=== PATIENT | male | born 1950 | race Two or more races ===

== ENCOUNTER 2018-01-14 22:50 | Inpatient (IN) | payer MEDICAID, OTHER ==
[2018-01-15] MEDS ORDERED: ONDANSETRON HCL/PF 4 MG/2 ML VIAL IVP PRN (01:00)
[2018-01-15] MEDS ORDERED: Z GUARD REMEDY 2 OZ OINT TP PRN (01:00)
[2018-01-15] MEDS ORDERED: MAGNESIUM HYDROXIDE 30 ML UDC PO PRN (01:00)
[2018-01-15] MEDS ORDERED: NITROGLYCERIN 0.4 MG/TAB BOTTLE SL PRN (01:00)
[2018-01-15] MEDS ORDERED: HYDROCODONE/APAP 5/325MG 1 EACH TABLET PO PRN (01:00)
[2018-01-15] MEDS ORDERED: MAG HYDROX/AL HYDROX/SIMETH 30 ML UDC PO PRN (01:00)
[2018-01-15] MEDS ORDERED: MORPHINE SULFATE INJ 2 MG/ML DISP.SYRIN IV PRN (01:00)
[2018-01-15] MEDS ORDERED: ACETAMINOPHEN 325 MG TABLET PO PRN (01:00)
[2018-01-15] MEDS ORDERED: ATOR20TA PO (08:09)
[2018-01-15] MEDS ORDERED: OMEP20TA5 PO (08:09)
[2018-01-15] MEDS ORDERED: ASPI-1152 PO (08:09)
[2018-01-15] MEDS ORDERED: HYDR25TA4 PO (08:09)
[2018-01-15] MEDS ORDERED: CHOL50004 PO (08:12)
[2018-01-15] MEDS ORDERED: ATORVASTATIN 40 MG TABLET PO SCH (09:00)
[2018-01-15] MEDS ORDERED: LOSARTAN POTASSIUM 50 MG TABLET PO SCH (09:00)
[2018-01-15] MEDS ORDERED: ASPIRIN 81 MG TAB.CHEW PO SCH (09:00)
[2018-01-15] MEDS ORDERED: IV NS 0.9% 250 ML IV ONE (09:43)
[2018-01-15] MEDS ORDERED: IOHEXOL-300 100 ML VIAL IV ONE (09:43)
[2018-01-15] MEDS ORDERED: CT SWABBABLE VALVE TRANS SET 1 EA INFUS.SET MC ONE (09:44)
[2018-01-15] MEDS ORDERED: IOHEXOL-350 100 ML VIAL IV ONE (09:44)
[2018-01-15] MEDS ORDERED: IV NS 0.9% 1,000 ML BAG IV PRN (18:00)
[2018-01-15] MEDS ORDERED: IV NS 0.9% 1,000 ML IV PRN (18:30)
[2018-01-16] MEDS ORDERED: REGADENOSON 0.4 MG/5 ML DISP.SYRIN IVP ONE (08:00)
== END 2018-01-16 11:18 | disposition home or self-care (01) | DRG 203 ==
DX: R07.89 Other chest pain (principal); I10 Essential (primary) hypertension; E86.9 Volume depletion, unspecified; R73.9 Hyperglycemia, unspecified; E78.5 Hyperlipidemia, unspecified; E55.9 Vitamin D deficiency, unspecified; R00.1 Bradycardia, unspecified; G89.29 Other chronic pain; Z98.890 Other specified postprocedural states; Z72.0 Tobacco use

== ENCOUNTER 2018-11-22 22:47 | Emergency (ER) | payer OTHER ==
[~2018-11-22] VITALS: Ht 180.3 cm; Wt 81.6 kg
[~2018-11-22 22:47] MED LIST: ASPI-1152 PO; ATOR20TA PO; CHOL50004 PO; HYDR25TA4 PO; OMEP20TA5 PO
[2018-11-22 23:13] LABS: BASOPHILS % (AUTO) 0.6 % (0.0-2.0); EOSINOPHILS % (AUTO) 3.4 % (0.0-6.0); HEMATOCRIT 50 % (39-51); HEMOGLOBIN 16.5 g/dL (13.5-17.5); LYMPHOCYTES # (AUTO) 2.3 /CMM (0.8-4.8); LYMPHOCYTES % (AUTO) 28.2 % (20.0-44.0); MEAN CORPUSCULAR HGB CONC 33 g/dl (31.0-36.0); MEAN CORPUSCULAR VOLUME 93 fL (80-96); MONOCYTES % (AUTO) 12.1 % (2.0-12.0); NEUTROPHILS # (AUTO) 4.6 /CMM (1.8-8.9); NEUTROPHILS % (AUTO) 55.7 % (43.0-81.0); PLATELET COUNT (AUTO) 247 /CMM (150-450); RED BLOOD CELL COUNT(AUTO) 5.37 MIL/uL (4.5-6.0); WHITE BLOOD COUNT (AUTO) 8.2 K/uL (4.3-11.0)
--- NOTE | 2018-11-22 23:15 | NUR ---
PT BIB SELF C/O L SIDED CP X2 HRS [employer] WITH RADIATION TO L SHOULDER AND L ARM. 4/10 SEVERITY. SKIN DIAPHORETIC, COOL. RESP EVEN UNLABORED. PLACED ON TELE MONITOR IN ER BED 07.
[2018-11-22 23:21] LABS: CARBON DIOXIDE 28 mmol/L (21-32); CHLORIDE 102 mmol/L (98-107); CREATININE 1.3 mg/dL (0.6-1.3); GLUCOSE 118 mg/dL (74-106); POTASSIUM 3.6 mmol/L (3.5-5.1); SODIUM SERUM 138 mmol/L (136-145); UREA NITROGEN, BLOOD 18 mg/dL (7-18)
[2018-11-22] MEDS ORDERED: ASPIRIN 81 MG TAB.CHEW PO ONE (23:30)
[2018-11-22] MEDS ORDERED: ASPIRIN 81 MG TAB.CHEW ONE (23:31)
--- NOTE | 2018-11-22 23:47 | NUR ---
306-2 T Addendum: 11/22/18 at 2358 by [facility] [id number]
--- NOTE | 2018-11-23 | NUR ---
REPORT GIVEN TO RICCARDO YIN FOR ADMISSION
--- NOTE | 2018-11-23 01:15 | NUR ---
RESTING QUIETLY, NAD NOTED. ON MONITOR, VSS.
--- NOTE | 2018-11-23 02:05 | NUR ---
PT REPORTS 2X EPISODES OF CP LASTING 3 SECONDS EACH WHICH RESOLVED SPONTANEOUSLY. DENIES PAIN CURRENTLY.
--- NOTE | 2018-11-23 02:16 | NUR ---
CALL FROM [facility]. PT ACCEPTED BY DR YEE. BED 532. # FOR REPORT [phone].
--- NOTE | 2018-11-23 02:20 | NUR ---
[facility] CALLED FOR ALS TRANSPORT. ETA 1 HR TRIP#[id number]
--- NOTE | 2018-11-23 02:22 | NUR ---
REPORT GIVEN TO REESE YIN FOR TRANSFER TO [facility]
[2018-11-23 03:20] VITALS: BP 118/71
--- NOTE | 2018-11-23 03:30 | NUR ---
REPORT GIVEN TO [facility] TEAM FOREMAN FOR ALS TRANSFER TO [facility]. ALL BELONGINGS AND PAPERWORK SENT WITH PT. PT TRANSFERRED TO [facility] IN STABLE CONDITION.
== END 2018-11-23 03:53 | disposition short-term general hospital (02) ==
LOC: ER 22:47
DX: R07.89 Other chest pain (principal); I10 Essential (primary) hypertension; E78.5 Hyperlipidemia, unspecified; G89.29 Other chronic pain; M54.9 Dorsalgia, unspecified; F17.200 Nicotine dependence, unspecified, uncomplicated; Z79.82 Long term (current) use of aspirin; Z60.2 Problems related to living alone; Z98.890 Other specified postprocedural states
CPT/HCPCS: 36415; 71045-TC; 80048-TC; 84484-TC; 85025-TC

== ENCOUNTER 2019-08-01 12:50 | Emergency (ER) | payer OTHER ==
[~2019-08-01] VITALS: Ht 170.2 cm; Wt 77.1 kg
--- NOTE | 2019-08-01 13:06 | NUR ---
adela dinh at bedside for eval.
--- NOTE | 2019-08-01 13:20 | NUR ---
laboratory chemist at bedside for blood draw.
[2019-08-01 13:29] LABS: BASOPHILS % (AUTO) 0.5 % (0.0-2.0); EOSINOPHILS % (AUTO) 3.3 % (0.0-6.0); HEMATOCRIT 43 % (39-51); HEMOGLOBIN 14.4 g/dL (13.5-17.5); LYMPHOCYTES # (AUTO) 2.3 /CMM (0.8-4.8); LYMPHOCYTES % (AUTO) 39.2 % (20.0-44.0); MEAN CORPUSCULAR HGB CONC 33 g/dl (31.0-36.0); MEAN CORPUSCULAR VOLUME 92 fL (80-96); MONOCYTES # (AUTO) 0.7 /CMM (0.1-1.30); MONOCYTES % (AUTO) 11.8 % (2.0-12.0); NEUTROPHILS # (AUTO) 2.6 /CMM (1.8-8.9); NEUTROPHILS % (AUTO) 45.2 % (43.0-81.0); PLATELET COUNT (AUTO) 177 /CMM (150-450); RED BLOOD CELL COUNT(AUTO) 4.69 MIL/uL (4.5-6.0); WHITE BLOOD COUNT (AUTO) 5.8 K/uL (4.3-11.0)
--- NOTE | 2019-08-01 13:40 | NUR ---
radiology at bedside for chest and hip xray.
[2019-08-01 13:52] LABS: CALCIUM, SERUM 9.2 mg/dL (8.5-10.1); CREATININE 1.1 mg/dL (0.6-1.3); POTASSIUM 3.8 mmol/L (3.5-5.1)
[2019-08-01] MEDS ORDERED: HYDROCODONE/APAP 5/325MG 1 EACH TABLET PO ONE ×2 (15:30→17:30)
[2019-08-01] MEDS ORDERED: ACETAMINOPHEN ES 500 MG TABLET ONE (15:37)
--- NOTE | 2019-08-01 15:40 | NUR ---
tylenol 1G given per adela SAUCEDA verbal order. pt to radiology for hip ct scan via [facility].
[2019-08-01] MEDS ORDERED: ACETAMINOPHEN ES 500 MG TABLET PO ONE (17:30)
[2019-08-01] MEDS ORDERED: HYDROCODONE/APAP 5/325MG 1 EACH TABLET ONE (17:33)
--- NOTE | 2019-08-01 18:21 | NUR ---
pt road tested. able to ambulate. steady gait. adela dinh at bedside.
--- NOTE | 2019-08-01 18:47 | NUR ---
Patient discharged to home in stable condition. Written and verbal after care instructions given. Patient verbalizes understanding of instruction.
[2019-08-01 18:48] VITALS: BP 118/62
== END 2019-08-01 18:49 | disposition home or self-care (01) ==
LOC: ER 12:56
DX: S70.02XA Contusion of left hip, initial encounter (principal); I10 Essential (primary) hypertension; G89.29 Other chronic pain; M54.9 Dorsalgia, unspecified; F17.200 Nicotine dependence, unspecified, uncomplicated; Z98.890 Other specified postprocedural states; Z60.2 Problems related to living alone; Z79.82 Long term (current) use of aspirin; Z79.899 Other long term (current) drug therapy; W01.198A Fall on same level from slipping, tripping and stumbling with subsequent striking against other object, initial encounter; Y93.01 Activity, walking, marching and hiking; Y92.512 Supermarket, store or market as the place of occurrence of the external cause; Y99.8 Other external cause status
CPT/HCPCS: 36415; 71045-TC; 73502; 73700-TC; 80048-TC; 85025-TC; 85730-TC